=== PATIENT | female | born 1955 | race Caucasian/White ===

== ENCOUNTER 2016-08-25 12:54 | Emergency (ER) | payer OTHER ==
[2016-08-25 13:32] VITALS: BP 144/77; PULSE 68; TEMP 98; BMI 26.5
[2016-08-25] MEDS ORDERED: DIPHTH,PERTUSS(ACELL),TET 0.5 ML DISP.SYRIN IM ONE (14:08)
[2016-08-25] MEDS ORDERED: BACITRACIN 30 GM TUBE TOPICAL OINTMENT TP ONE (14:11)
--- NOTE | 2016-08-25 14:13 | PDOC ---
History of Present Illness - General Chief Complaint: Laceration Stated Complaint: EMPLOYEE - TETANUS SHOT Time Seen by Provider: 08/25/16 14:02 History Source: Patient Exam Limitations: No Limitations - History of Present Illness Initial Comments: 08/25/16 14:11 CHIEF COMPLAINT: Laceration HISTORY OF PRESENT ILLNESS: This is a 61 year old female with a history of HTN who presents for evaluation of laceration to the left 4th finger. 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 Her tetanus vaccine is not up-to-date. REVIEW OF SYSTEMS: GENERAL/CONSTITUTIONAL: No fever or chills. No weakness. No weight change. MUSCULOSKELETAL: No joint or muscle swelling or pain. No neck or back pain. SKIN: See HPI. NEUROLOGIC: No loss of sensation. HEMATOLOGIC/LYMPHATIC: No anemia, easy bleeding, or history of blood clots. ALLERGIC/IMMUNOLOGIC: No hives or skin allergy. No latex allergy. PHYSICAL EXAM: GENERAL: The patient is awake, alert, and fully oriented, in no acute distress. EXTREMITIES: Normal range of motion, no edema. NEUROLOGICAL: Normal speech, normal gait. CN II-XII grossly intact. PSYCH: Normal mood, normal affect. SKIN: Small avulsion injury to left 4th finger, no active bleeding.. Past History - Past Medical History Allergies/Adverse Reactions: Allergies Allergy/AdvReac Type Severity Reaction Status Date / Time No Known Allergies Allergy Verified 08/25/16 13:21 Home Medications: Ambulatory Orders Atenolol [Tenormin] 25 mg PO ASDIR 03/19/15 GI Disorders: Yes (coliits) HTN: Yes - Psycho/Social/Smoking Cessation Hx Suicidal Ideation: No Smoking History: Never smoked Hx Alcohol Use: No Drug/Substance Use Hx: No *Physical Exam - Vital Signs Last Vital Signs Temp Pulse Resp BP Pulse Ox 98 F 68 19 144/77 97 08/25/16 13:21 08/25/16 13:21 08/25/16 13:21 08/25/16 13:21 08/25/16 13:21 Medical Decision Making - Medical Decision Making 08/25/16 14:11 A/P: 61 year old female with small avulsion injury to left 4th digit. -Wound irrigation, bacitracin, sterile dressing -Tetanus booster *DC/Admit/Observation/Transfer Diagnosis at time of Disposition: Avulsion of finger Qualifiers: Encounter type: initial encounter Qualified Code(s): S61.209A - Unspecified open wound of unspecified finger without damage to nail, initial encounter - Discharge Dispostion Disposition: HOME Condition at time of disposition: Stable Admit: No - Referrals Referrals: Nehal Glez MD [Primary Care Provider] - - Patient Instructions Printed Discharge Instructions: DI for Avulsion Laceration (Not Requiring Sutures) Additional Instructions: -Keep the wound clean and dry and apply bacitracin ointment once daily -Return here for redness around the wound or any other concerning symptoms
== END 2016-08-25 14:31 | disposition home or self-care (01) ==
LOC: JER 12:54 → JERFT 12:54
PROC: 3E0234Z Introduction of Serum, Toxoid and Vaccine into Muscle, Percutaneous Approach (ICD-10-PCS; principal; 2016-08-25)
DX: S61.215A Laceration without foreign body of left ring finger without damage to nail, initial encounter (principal); W45.8XXA Other foreign body or object entering through skin, initial encounter; Y93.89 Activity, other specified; Y92.238 Other place in hospital as the place of occurrence of the external cause; Y99.0 Civilian activity done for income or pay
CPT/HCPCS: 90715; 99281-25